=== PATIENT | male | born 1975 | race Two or more races ===

== ENCOUNTER 2021-04-07 14:48 | Emergency (ER) | payer BC, MEDICAID, OTHER ==
[~2021-04-07] VITALS: Ht 170.2 cm; Wt 95.5 kg
[2021-04-07 15:44] LABS: BASOPHILS % (AUTO) 0 % (0-1); EOSINOPHILS % (AUTO) 3 % (1-7); LYMPHOCYTES % (AUTO) 28 % (22-44); MEAN CORPUSCULAR HGB CONC 35.3 g/dL (33.2-36.2); MEAN PLATELET VOLUME 8.8 fL (7.4-10.4); MONOCYTES % (AUTO) 8 % (2-9); NEUTROPHILS % (AUTO) 62 % (42-75); PLATELET COUNT 218 x10^3/uL (130-400); RED BLOOD COUNT 5.22 x10^6/uL (4.38-5.82); RED CELL DISTRIBUTION WIDTH 13.2 % (9.4-14.8)
--- NOTE | 2021-04-07 15:45 | NUR ---
PATIENT WALKED BACK FROM LOBBY WITH CHIEF C/O NUMBNESS ON LEFT SIDE OF HIS BODY. PATIENT STATES THIS STARTED AROUND 1000 THIS MORNING, SYMPTOMS RESOLVED FOR ABOUT 2 HOURS AND THEN CAME BACK AND HAVE NOT RESOLVED. PATIENT STATES HE ALSO FEELS "OFF BALANCE." DENIES OTHER NEURO SYMPTOMS. HX OF 2 STROKES IN THE PAST. A&O, CONNECTED TO MONITOR, VSS, CALL LIGHT WITHIN REACH.
[2021-04-07 15:55] LABS: ANION GAP 2 mmol/L (5-15); CALCIUM 9.3 mg/dL (8.5-10.1); CHLORIDE 101 mmol/L (98-107)
[2021-04-07 15:59] LABS: ALANINE AMINOTRANSFERASE 29 U/L (12-78); ALBUMIN 3.7 g/dL (3.4-5.0); ALKALINE PHOSPHATASE 87 U/L (45-117); BILIRUBIN,TOTAL 0.5 mg/dL (0.2-1.0); CREATININE 0.96 mg/dL (0.7-1.3); TOTAL PROTEIN 8.1 g/dL (6.4-8.2)
--- NOTE | 2021-04-07 17:22 | NUR ---
PATIENT TO MRI.
--- NOTE | 2021-04-07 17:42 | NUR ---
PATIENT STILL IN MRI.
--- NOTE | 2021-04-07 18:01 | NUR ---
PATIENT BACK IN ROOM, NADN, CONNECTED TO MONITOR, VSS, DENIES ANY NEEDS AT THIS TIME, CALL LIGHT WITHIN REACH. PATIENT UP FOR RECHECK.
[2021-04-07 18:24] VITALS: BP 158/77
--- NOTE | 2021-04-07 18:24 | NUR ---
ERMD AT BEDSIDE TO DISCUSS POC AND DISCHARGE DISPO.
--- NOTE | 2021-04-07 18:47 | NUR ---
Patient given discharge instructions and they have confirmed that they understand the instructions. Patient ambulatory with steady gait. NAD, all questions answered appropriately, denies additional needs at this time. No personal belongings left in room after discharge.
== END 2021-04-07 18:48 | disposition home or self-care (01) ==
LOC: ED 18:38
DX: R20.2 Paresthesia of skin (principal); R51.9 Headache, unspecified; R94.31 Abnormal electrocardiogram [ECG] [EKG]; I10 Essential (primary) hypertension; E11.9 Type 2 diabetes mellitus without complications
CPT/HCPCS: 36415; 70450; 70551; 80053; 85025; 93005; 99285